=== PATIENT | male | born 1980 | race Caucasian/White ===

== ENCOUNTER 2017-06-13 01:53 | Emergency (ER) | payer MEDICAID ==
[~2017-06-13] VITALS: Ht 177.8 cm; Wt 102.1 kg
[2017-06-13 02:10] VITALS: BP_SYST 106
[2017-06-13 03:24] VITALS: BP_SYST 109
== END 2017-06-13 03:24 | disposition home or self-care (01) ==
LOC: SED 01:53
DX: H10.9 Unspecified conjunctivitis (principal)
CPT/HCPCS: 99283